=== PATIENT | female | born 1990 | race Two or more races ===

== ENCOUNTER 2018-02-02 10:05 | Observation (INO) | payer MEDICAID ==
[2018-02-02] MEDS ORDERED: PREN27TA7 OR (12:05)
== END 2018-02-02 11:50 | disposition home or self-care (01) | DRG 566 ==
LOC: LDRP 10:05
PROVIDERS: ADMIT Specialist; ATTEND Specialist
DX: O48.0 Post-term pregnancy (principal); Z3A.40 40 weeks gestation of pregnancy
CPT/HCPCS: 59025; 76818; 81002; G0378

== ENCOUNTER 2018-02-04 10:50 | Observation (INO) | payer MEDICAID ==
[~2018-02-04 10:50] MED LIST: PREN27TA7 OR
== END 2018-02-04 12:25 | disposition home or self-care (01) | DRG 566 ==
LOC: LDRP 10:50
PROVIDERS: ADMIT Obstetrics & Gynecology; ATTEND Obstetrics & Gynecology
DX: O48.0 Post-term pregnancy (principal); O62.9 Abnormality of forces of labor, unspecified; Z3A.00 Weeks of gestation of pregnancy not specified
CPT/HCPCS: 59025; 76818; 81002; G0378

== ENCOUNTER 2018-02-05 23:41 | Inpatient (IN) | payer MEDICAID ==
[~2018-02-05] VITALS: Ht 165.1 cm; Wt 74.8 kg
[2018-02-06] MEDS ORDERED: LACT. RINGERS/OXYTOCIN 20UNITS 1,000 ML IV SCH (00:04)
[2018-02-06] MEDS ORDERED: CARBOPROST TROMETHAMINE 250 MCG/1ML VIAL IM PRN (00:15)
[2018-02-06] MEDS ORDERED: NALBUPHINE HCL 10 MG/1ml INJECTION IV PRN (00:15)
[2018-02-06] MEDS ORDERED: LIDOCAINE 2% (LOCAL ANESTH.) PF 5ml SDV ID ONE (00:15)
[2018-02-06] MEDS ORDERED: DERMOPLAST 60ML BOTTLE TOP PRN (00:15)
[2018-02-06] MEDS ORDERED: WITCH HAZEL-GLYCERIN PAD TOP PRN (00:15)
[2018-02-06] MEDS ORDERED: NALBUPHINE HCL 10 MG/1ml INJECTION IM PRN (00:15)
[2018-02-06] MEDS ORDERED: METHYLERGONOVINE MALEATE 0.2 MG/ML AMP IM PRN (00:15)
[2018-02-06] MEDS ORDERED: PHISODERM TOP SOLN 240ML BTL TOP PRN (00:15)
[2018-02-06] MEDS ORDERED: LIDOCAINE 2% (LOCAL ANESTH.) PF 5ml SDV ONE (00:16)
[2018-02-06] MEDS ORDERED: WITCH HAZEL-GLYCERIN PAD TOP ONE (00:17)
[2018-02-06] MEDS ORDERED: DERMOPLAST 60ML BOTTLE TOP ONE (00:17)
[2018-02-06] MEDS ORDERED: PHISODERM TOP SOLN 240ML BTL TOP ONE (00:17)
[2018-02-06] MEDS ORDERED: LACT. RINGERS/OXYTOCIN 20UNITS 1,000 ML IV ONE (00:17)
[2018-02-06] MEDS: LACTATED RINGER'S 1,000 ML IV SCH ×3 (00:20→16:04)
[2018-02-06 00:48] LABS: Basophils # (auto) 0.1 uL; Basophils % (auto) 0.5 % (0.0-2.0); Eosinophils # (auto) 0 uL; Eosinophils % (auto) 0.2 % (0.0-7.0); Hematocrit 36.8 % (36.0-46.0); Hemoglobin 12.8 g/dL (12.2-16.2); Lymphocytes # (auto) 1.8 uL; Lymphocytes % (auto) 16.5 % (10.0-50.0); Mean Corpuscular Hemoglobin 33.9 pg (28.0-32.0); Mean Corpuscular Hgb Conc. 34.6 g/dL (32.0-36.0); Mean Corpuscular Volume 97.9 fL (80.0-100.0); Monocytes # (auto) 0.7 uL; Monocytes % (auto) 6.7 % (0.0-12.0); Neutrophils # (auto) 8.1 uL; Neutrophils % (auto) 76.1 % (37.0-80.0); Platelet Count (auto) 202 10^3/uL (140-450); Red Blood Cells 3.76 10^6/uL (4.0-5.20); Red Cell Distribution Width 12.4 % (11.8-14.3); White Blood Cell 10.7 10^3/uL (4.4-10.8)
[2018-02-06 01:06] LABS: INR 0.86 (0.9-1.15); Partial Thromboplastin Time 26.1 sec (23.78-33.04); Prothrombin Time 9.3 sec (9.27-12.13)
[2018-02-06 01:10] LABS: Albumin 2.8 g/dL (3.4-5.0); BUN/Creatinine Ratio 13.9; Bilirubin, Total 0.2 mg/dL (0.2-1.0); Calcium 8.8 mg/dL (8.5-10.1); Potassium 4.2 mmol/L (3.5-5.1)
[2018-02-06 04:20] LABS: Urine Bacteria NONE SEEN /hpf (None Seen); Urine Blood 3+ /uL (Negative); Urine Specific Gravity 1.008 (1.001-1.035); Urine WBC 124 /hpf (0 - 5)
[2018-02-06] MEDS ORDERED: ACETAMINOPHEN 325 MG TAB PO ONE (05:33)
[2018-02-06] MEDS ORDERED: ACETAMINOPHEN 325 MG TAB PO PRN (05:45)
[2018-02-06] MEDS ORDERED: IBUPROFEN 600 MG TAB PO PRN (05:45)
[2018-02-06 06:47] VITALS: BP 112/63
[2018-02-06 10:23] VITALS: BP 103/57
[2018-02-06 15:00] VITALS: BP 129/73
[2018-02-06 19:30] VITALS: BP 109/61
[2018-02-06 23:00] VITALS: BP 135/87
[2018-02-07 03:15] VITALS: BP 120/73
[2018-02-07 04:07] LABS: RPR Non Reactive (Non Reactive)
[2018-02-07 06:55] VITALS: BP 106/58
[2018-02-07 10:43] VITALS: BP 129/72
== END 2018-02-07 12:18 | disposition home or self-care (01) | DRG 560 ==
LOC: TELE 23:41 → LDRP 02-06 00:03 → OBSVTOIN 02-06 00:03 → LDRP 02-06 01:30
PROVIDERS: ADMIT Obstetrics & Gynecology; ATTEND Obstetrics & Gynecology
PROC: 10E0XZZ Delivery of Products of Conception, External Approach (ICD-10-PCS; principal; 2018-02-06)
PROC: 10907ZC Drainage of Amniotic Fluid, Therapeutic from Products of Conception, Via Natural or Artificial Opening (ICD-10-PCS; 2018-02-06)
DX: O69.81X0 Labor and delivery complicated by cord around neck, without compression, not applicable or unspecified (principal); Z37.0 Single live birth; Z3A.40 40 weeks gestation of pregnancy
CPT/HCPCS: 36415; 59025; 59409; 80053; 81001; 85025; 85610; 85730; 86592; 86850; 86900; 86901; 96365; 96366; G0378; J2590